=== PATIENT | female | born 1995 | race Caucasian/White ===

== ENCOUNTER 2017-07-21 22:48 | Emergency (ER) | payer OTHER ==
[2017-07-21 22:52] VITALS: BP 125/86; PULSE 84; RESP 16; TEMP 97.7; O2SAT 95
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
[2017-07-21] MEDS ORDERED: OXYMETAZOLINE 30 ML NASAL SPRAY EACHNARE ONE (23:02)
== END 2017-07-21 23:21 | disposition home or self-care (01) ==
DX: S50.312A Abrasion of left elbow, initial encounter (principal); S80.211A Abrasion, right knee, initial encounter; S80.212A Abrasion, left knee, initial encounter; R09.81 Nasal congestion; V00.142A Scooter (nonmotorized) colliding with stationary object, initial encounter; Y92.410 Unspecified street and highway as the place of occurrence of the external cause; Y99.8 Other external cause status; Y93.89 Activity, other specified

== ENCOUNTER → 2018-10-17 | Outpatient (CLI) | payer OTHER | LOC: FIMAGING 08:06 ==